=== PATIENT | male | born 1930 | race Caucasian/White ===

== ENCOUNTER 2019-08-20 19:23 | Observation (INO) ==
[2019-08-20] MEDS ORDERED: DILTIAZEM HCL 5 MG/ML VIAL IV ONE (19:37)
[2019-08-20] MEDS ORDERED: ENOXAPARIN SODIUM 80 MG/0.8 ML DISP.SYRIN SC ONE (19:38)
--- NOTE | 2019-08-20 19:47 | ERNOTE ---
Dyspnea - General Presenting Symptoms: shortness of breath Time Seen by Provider: 08/20/19 19:30 Source: patient, EMS Exam Limitations: no limitations - Immun/Allergies/Home Medications Immunizations: IMMUNIZATION HX Immunizations Up to Date Yes History of Influenza Vaccine Yes Hx Pneumococcal Vaccination Yes Allergies/Adverse Reactions: Allergies No Known Allergies Allergy (Verified 08/20/19 19:32) Per facility data Home Medications: HOME MEDICATIONS Durable Medical Equipment See Rx Instructions .ROUTE .MEDSUPPLY #1 ea 08/15/19 [Last Taken Unknown] aspirin 81 mg tablet,delayed release 81 mg PO DAILY 08/15/19 [Last Taken Unknown] clopidogrel 75 mg tablet 75 mg PO DAILY 08/15/19 [Last Taken Unknown] coenzyme Q10 100 mg capsule 100 mg PO DAILY 08/15/19 [Last Taken Unknown] finasteride 1 mg tablet 1 mg PO DAILY 08/15/19 [Last Taken Unknown] ipratropium-albuterol 0.5 mg-3 mg(2.5 mg base)/3 mL nebulization soln 3 ml IH QID PRN #1 ml 08/15/19 [Last Taken Unknown] pantoprazole 40 mg tablet,delayed release 20 mg PO DAILY tab 08/15/19 [Last Taken Unknown] polyethylene glycol 3350 17 gram/dose oral powder 8.5 g PO DAILY PRN #119 g 08/15/19 [Last Taken Unknown] - History of Present Illness Narrative: Patient was seen by me earlier and was given the option to stay in the hospital and he declined. At that point it appeared we are only dealing with his pulmonary fibrosis, however he returns now hypoxic again with a new onset atrial fibrillation. 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 Initiating event: Reports: other - Likely the new onset atrial fibrillation Frequency of episodes: Reports: no prior episodes Modifying Factors - (Improves): Reports: oxygen Modifying Factors (Worsens): Reports: nothing Associated Symptoms-Dyspnea: Reports: denies symptoms Prior Treatment: Reports: recently seen, treated by physician Review of Systems - Review of Systems Constitutional: Present: See HPI EYE: Present: no symptoms reported ENT: Present: no symptoms reported Respiratory: Present: See HPI Cardiology: Present: See HPI Gastrointestinal/Abdominal: Present: no symptoms reported Genitourinary: Present: no symptoms reported Musculoskeletal: Present: no symptoms reported Skin: Present: no symptoms reported Neurological: Present: no symptoms reported Endocrine: Present: no symptoms reported Hematologic/Lymphatic: Present: no symptoms reported Psych: Present: no symptoms reported Medical History (Last Reviewed 08/20/19 @ 19:32 by Terri Cornejo RN) Pulmonary fibrosis (Chronic) COPD (chronic obstructive pulmonary disease) (Acute) Enlarged prostate with lower urinary tract symptoms (LUTS) (Acute) Hyperlipidemia (Acute) GERD (gastroesophageal reflux disease) (Chronic) Benign prostatic hyperplasia Coronary artery disease Surgical History: Surgical History (Last Reviewed 08/20/19 @ 19:32 by Terri Cornejo RN) Esophageal stricture dilation 1998 History of angioplasty History of colonoscopy 2001 Family History: Family History (Last Reviewed 08/20/19 @ 19:32 by Terri Cornejo RN) Mother Diabetes Social History: (Last Reviewed 08/20/19 @ 19:32 by Terri Cornejo RN) Social History: current occupational status: retired Service: No Tobacco: Smoking Status: Former smoker Alcohol: alcohol intake: current alcohol intake frequency: holiday/special occasion details: 1 shot of liquor when he does Substance Use: substance use type: does not use Exercise: frequency: does not exercise Physical Exam - Physical Exam General Appearance: Present: wd/wn, alert, moderate distress Head Exam: Present: normal inspection, no evidence of injury Eye Exam: Normal inspection: bilateral, PERRL: bilateral Ears, Nose, Throat: Present: normal ENT inspection, H, normal pharynx Neck: Present: normal inspection, nontender Respiratory: Present: normal breath sounds, no accessory muscle use, chest nontender, lungs clear, other - Diminished breath sounds heard throughout Cardiovascular/Chest: Present: no murmur, normal peripheral pulses, tachycardia, irregularly irregular Gastrointestinal/Abdominal: Present: normal bowel sounds, nontender, nondistended, soft, no organomegaly Rectal Exam: Present: deferred Back Exam: Present: normal inspection, normal range of motion Extremity Exam: Present: normal inspection, non-tender, no edema, normal range of motion Neurological Exam: Present: alert, oriented, normal mood/affect Skin Exam: Present: normal color, warm/dry Lymphatic Exam: Present: no adenopathy Progress - Vital Signs Patient's Vital Signs:: I have reviewed the patient's vital signs. Vital Signs: Vital Signs 08/20/19 19:27 Temperature 36.5 C Pulse Rate 116 H Respiratory Rate 36 H Blood Pressure 159/62 H O2 Sat by Pulse Oximetry 89 L - Progress/Reassessment Chief Complaint: Dyspnea Plan - Plan Plan: Patient will need to be admitted to the hospital to help try to get his heart rate better controlled and to determine whether anticoagulation will be the next logical adjunct. Departure Clinical Impression: New onset atrial fibrillation, Pulmonary fibrosis - Departure Disposition: Still a patient Condition: Fair Referrals: Johann Vizcaino MD [Primary Care Provider] - Critical Care Note - Critical Care Note Total Time (mins): 30 Comments: Patient was given Cardizem IV to help control his heart rate. He was also given Lovenox 1 mg/kg subcu and will be started on oral diltiazem in the emergency department.
[2019-08-20] MEDS ORDERED: DILTIAZEM HCL 120 MG CAP.SR.24H PO ONE (19:57)
[2019-08-20] MEDS: DILTIAZEM HCL 120 MG CAP.SR.24H PO SCH (20:04)
[2019-08-21] MEDS ORDERED: ALPRAZolam 0.25 MG TABLET PO PRN (05:28)
[2019-08-21 06:38] VITALS: BP 110/63
[2019-08-21] MEDS: MORPHINE SULFATE 10 MG/0.5 ML SYRINGE PO PRN ×5 (08:13→16:49)
[2019-08-21] MEDS ORDERED: NORMAL SALINE IV SCH (08:15)
[2019-08-21] MEDS ORDERED: ENOXAPARIN SODIUM 80 MG/0.8 ML DISP.SYRIN SC SCH (08:15)
[2019-08-21] MEDS ORDERED: METHYLPREDNISOLONE SOD SUCC IV SCH (08:15)
[2019-08-21] MEDS: DILTIAZEM HCL 120 MG CAP.SR.24H PO SCH (08:19)
[2019-08-21] MEDS ORDERED: METHYLPREDNISOLONE SOD SUCC/PF 125 MG/2 ML VIAL IV ONE (08:30)
[2019-08-21] MEDS: ALBUTEROL SULFATE/IPRATROPIUM 3 ML NEBU IH SCH ×2 (10:09→15:01)
[2019-08-21] MEDS: LORAZEPAM 2 MG/ML ORAL.CONC PO PRN ×2 (10:14→10:18)
[2019-08-21] MEDS ORDERED: LORAZEPAM 2 MG/ML ORAL.CONC PO PRN (11:56)
[2019-08-21] MEDS ORDERED: ATROPINE SULFATE 50 DROP BTL SL PRN (11:58)
[2019-08-21] MEDS ORDERED: ALBUTEROL SULFATE 2.5 MG/0.5 ML VIAL.NEB IH PRN (11:58)
[2019-08-21] MEDS ORDERED: ACETAMINOPHEN 325 MG TABLET PO PRN (11:58)
[2019-08-21] MEDS ORDERED: ONDANSETRON HCL/PF 2 MG/ML VIAL IV PRN (11:58)
[2019-08-21] MEDS ORDERED: POLYVINYL ALCOHOL 150 DROP BTL EACHEYE PRN (11:58)
--- NOTE | 2019-08-21 12:14 | HP ---
Chief Complaint - Chief Complaint Date of Service: 08/21/19 Time of Service: 12:01 Chief Complaint: Dyspnea History of Present Illness: This is a 89-year-old male with end-stage pulmonary fibrosis. 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 He also has a history of GERD, BPH and coronary artery disease. These are asymptomatic at the present time. Over the last several days, he has become increasingly more dyspneic at home. Eventually he was in severe distress and came to the emergency room. He was there twice. The first time he elected to go home, but he became even more short of breath and returned, at which point he was admitted to the hospital. In the emergency room his O2 saturation was as low as 77% with 4 L/min nasal cannula oxygen. It went up to 90 or a little above with a mask. He appears to now maintain his O2 sats fairly well with the mask unless he becomes agitated, particularly because of his breathing, in which case his O2 sat drops again. He resides at [facility]. For some time he and his family have been talking about a hospice referral. They plan to talk to hospice as an outpatient next week. Now that he is in the hospital, he reasserts that he wishes no extraordinary measures and would like to be referred to hospice now so that he will be kept comfortable, with no current plan to try to reverse the course of this particular episode of illness. [facility] hospice has been contacted and will see him sometime today. I discussed all of this with him and also with his daughter today. All of their questions were answered. Both were encouraged to talk with his nurse should he need something or if they had problems or questions Medical History (Last Reviewed 08/21/19 @ 12:06 by Johann Vizcaino MD) Pulmonary fibrosis (Chronic) COPD (chronic obstructive pulmonary disease) (Acute) Enlarged prostate with lower urinary tract symptoms (LUTS) (Acute) Hyperlipidemia (Acute) GERD (gastroesophageal reflux disease) (Chronic) Benign prostatic hyperplasia Coronary artery disease Surgical History: Surgical History (Last Reviewed 08/21/19 @ 12:06 by Johann Vizcaino MD) Esophageal stricture dilation 1998 History of angioplasty History of colonoscopy 2001 Family History: Family History (Last Reviewed 08/21/19 @ 12:06 by Johann Vizcaino MD) Mother Diabetes Social History: (Last Reviewed 08/21/19 @ 12:06 by Johann Vizcaino MD) Social History: current occupational status: retired Service: No Tobacco: Smoking Status: Former smoker Alcohol: alcohol intake: current alcohol intake frequency: holiday/special occasion details: 1 shot of liquor when he does Substance Use: substance use type: does not use Exercise: frequency: does not exercise Review Of Systems (GEN) - Review of Systems Generalized/Overall Review: Present: Weakness, Fatigue EENTM: Absent: Eye Pain, Blurred Vision Respiratory: Present: Cough, Shortness of Breath Cardiac: Absent: Chest Pain, Edema Abdominal: Absent: Nausea, Abdominal Pain, Constipation, Diarrhea Genitourinary: Absent: Urgency, Frequency Musculoskeletal: Absent: Joint Pain, Back Pain Neurological: Absent: Anxiety, Depressed - Only anxious when his breathing becomes worse. We are using both morphine and lorazepam to help him be more comfortable. Skin: Absent: Lesions, Rash Endocrine: Present: Intolerance to Cold, Intolerance to Heat Misc: All systems neg except as marked Immunizations: IMMUNIZATION HX Immunizations Up to Date Yes History of Influenza Vaccine Yes Hx Pneumococcal Vaccination Yes Allergies/Adverse Reactions: Allergies Allergy/AdvReac Type Severity Reaction Status Date / Time No Known Allergies Allergy Verified 08/20/19 19:32 Home Medications: HOME MEDICATIONS aspirin 81 mg tablet,delayed release 81 mg PO DAILY 08/15/19 [Last Taken Unknown] clopidogrel 75 mg tablet 75 mg PO DAILY 08/15/19 [Last Taken Unknown] coenzyme Q10 100 mg capsule 100 mg PO DAILY 08/15/19 [Last Taken Unknown] Finasteride [Proscar] 5 mg PO HS 08/20/19 [Last Taken Unknown] Ipratropium/Albuterol Sulfate [Iprat-Albut 0.5-3(2.5) mg/3 ml] 3 ml INHALATION Q4H PRN 08/20/19 [Last Taken Unknown] Pantoprazole Sodium 20 mg PO DAILY 08/20/19 [Last Taken Unknown] Revefenacin [Yupelri] 1 vial INHALATION DAILY 08/20/19 [Last Taken Unknown] Sennosides [Senna Lax] 8.6 mg PO DAILY PRN 08/20/19 [Last Taken Unknown] predniSONE [Prednisone] 7.5 mg PO DAILY 08/20/19 [Last Taken Unknown] Exam - Exam Vital Signs: Vital Signs - Last Taken Temp 36.4 C 08/21/19 06:36 Pulse 99 08/21/19 10:56 Resp 42 H 08/21/19 10:19 BP 110/63 08/21/19 08:19 Pulse Ox 66 L 08/21/19 10:51 Constitutional: Present: Alert, Oriented x3, Cooperative, Well developed, Well nourished, Mild distress, Moderate distress, Elderly ENT Exam: Present: normal ENT inspection, hearing grossly normal Eye Exam: bilateral eye: normal inspection Neck: Present: normal inspection. Absent: lymphadenopathy (R), lymphadenopathy (L), thyromegaly Back Exam: Present: normal inspection, no CVA tenderness Breasts: Present: Exam deferred Respiratory: Present: respiratory distress - At the present when I was in the room examining him, he is much more comfortable. He is not oversedated from his morphine or lorazepam., decreased breath sounds Cardiovascular/Chest: Present: regular rate, rhythm - I have reviewed all of his EKGs from this admission. The first 3 are hard to read, but I believe he has been in sinus rhythm the entire time., no edema, no murmur, tachycardia Peripheral Pulses: carotid (R): 1+, carotid (L): 1+ Abdomen: Present: Normal bowel sounds, soft, nontender, nondistended, no hepatospenomegaly, no masses /Rectal: Present: Exam deferred Extremity: Present: normal inspection, normal capillary refill Skin Exam: Present: normal color, warm/dry, no cyanosis Lymphatic: Present: no adenopathy Neurologic: Present: normal mood/affect - Unless he is anxious because of his breathing. Absent: depressed affect Appearance: Present: appropriate appearance, appropriate insight, neat, no memory impairment Eye contact: Present: cooperative, good eye contact, normal speech - A little labored because he is a little short of breath still Thoughts: Present: normal thought pattern Assessment/Plan - Narrative Narrative: We will use comfort care orders and adjust as necessary. He is DO NOT RESUSCITATE. We will await hospice consult. - Assessment/Plan (1) Respiratory failure Assessment: Most likely hypoxemic and hypercapnic respiratory failure. Given his wish for hospice, we have not actually done blood gases. We will minimize interventions that would be disturbing for him. Problem: Acute Qualifiers: Chronicity: acute on chronic Respiratory failure complication: hypoxia and hypercapnia Qualified Code(s): J96.21 - Acute and chronic respiratory failure with hypoxia; J96.22 - Acute and chronic respiratory failure with hypercapnia (2) End of life care Problem: Acute (3) New onset atrial fibrillation Problem: Ruled-out (4) Pulmonary fibrosis Problem: Chronic (5) COPD (chronic obstructive pulmonary disease) Problem: Chronic Qualifiers: COPD type: emphysema Emphysema type: panlobular Qualified Code(s): J43.1 - Panlobular emphysema (6) GERD (gastroesophageal reflux disease) Problem: Chronic Qualifiers: Esophagitis presence: without esophagitis (7) Coronary artery disease Problem: Chronic Qualifiers: Coronary Disease-Associated Artery/Lesion type: unspecified vessel or lesion type [place] vs. transplanted heart: [place] heart Associated angina: without angina Qualified Code(s): I25.10 - Atherosclerotic heart disease of [place] coronary artery without angina pectoris
[2019-08-21] MEDS ORDERED: METHYLPREDNISOLONE SOD SUCC/PF 40 MG/ML VIAL IV SCH (14:30)
[2019-08-21] MEDS ORDERED: ALBUTEROL SULFATE/IPRATROPIUM 3 ML NEBU IH PRN (15:18)
[2019-08-21] MEDS ORDERED: SENNOSIDES 8.6 MG TABLET PO PRN (15:18)
--- NOTE | 2019-08-21 15:25 | DS ---
Transfer Discharge Summary - Diagnosis(s)/Problems (1) Respiratory failure Problem: Acute (2) End of life care Problem: Acute (3) New onset atrial fibrillation Problem: Ruled-out (4) Pulmonary fibrosis Problem: Chronic (5) COPD (chronic obstructive pulmonary disease) Problem: Chronic (6) GERD (gastroesophageal reflux disease) Problem: Chronic (7) Coronary artery disease Problem: Chronic - Course Description of Stay: Admitted and together with patient and family decided on hospice care. Those arrangements have now been made with the hospice house in [place]. Transfer arrangements are now complete, awaiting only discharge summary and orders. Pt is now comfortable with current treatment. Consultation Done:: Hospice Procedures Performed: none - Results and Findings Results and Findings: EKGs actually documented sinus rhythm and not a fib. O2 sats variable depending on O2 dose and patient restlessness. - Medications Medications: Active Medications Albuterol/Ipratropium (Duoneb 2.5-0.5mg/3ml Soln) 3 ml IH Q4HRT JACKY Stop: 09/20/19 11:01 Last Admin: 08/21/19 15:01 Dose: 3 ml Documented by: Diltiazem HCl (Cardizem Cd) 120 mg PO DAILY JACKY Stop: 09/20/19 09:01 Last Admin: 08/21/19 08:19 Dose: 120 mg Documented by: Methylprednisolone Sodium Succinate (Solu-Medrol) 80 mg IV Q6H JACKY Stop: 09/20/19 14:31 Last Admin: 08/21/19 14:04 Dose: Not Given Documented by: Morphine Sulfate (Morphine Sulfate Conc. Oral Solution) 6 mg PO Q1H PRN PRN Reason: restlessness Stop: 09/20/19 07:59 Last Admin: 08/21/19 13:57 Dose: 6 mg Documented by: Discontinued Medications Alprazolam (Xanax) 0.25 mg PO Q4H PRN PRN Reason: Anxiety Last Admin: 08/21/19 05:35 Dose: 0.25 mg Documented by: Diltiazem HCl (Cardizem) 20 mg IV ONCE ONE Stop: 08/20/19 19:38 Last Admin: 08/20/19 19:43 Dose: 20 mg Documented by: Enoxaparin Sodium (Lovenox) 80 mg SC ONCE ONE Stop: 08/20/19 19:39 Last Admin: 08/20/19 19:41 Dose: 80 mg Documented by: Enoxaparin Sodium (Lovenox) 80 mg SC Q12H JACKY Stop: 09/20/19 08:16 Last Admin: 08/21/19 09:56 Dose: Not Given Documented by: Lorazepam (Ativan Intensol) 0.25 mg PO Q4H PRN PRN Reason: RESTLESSNESS Stop: 09/20/19 08:34 Last Admin: 08/21/19 10:18 Dose: 0.25 mg Documented by: Methylprednisolone Sodium Succinate (Solu-Medrol (Pf)) 125 mg IV ONCE ONE Stop: 08/21/19 08:31 Last Admin: 08/21/19 10:01 Dose: 125 mg Documented by: Morphine Sulfate (Morphine Sulfate Conc. Oral Solution) 5 mg PO Q1H PRN PRN Reason: restlessness Stop: 09/20/19 07:59 Last Admin: 08/21/19 11:03 Dose: 5 mg Documented by: For additional specific hospice related orders please see the [facility] Comfort Kit orders which I have completed and signed and will be added to the rest of this transfer information. - Disposition Disposition: Hospice Medical Facility Condition: Poor Discharge Date: 08/21/19 Discharge Time: 15:25
[2019-08-21] MEDS ORDERED: SENNOSIDES/DOCUSATE SODIUM 1 TAB TABLET PO SCH (21:00)
[2019-08-22] MEDS ORDERED: PANTOPRAZOLE SODIUM 20 MG TABLET.DR PO SCH (07:00)
[2019-08-22] MEDS ORDERED: predniSONE 5 MG TABLET PO SCH (09:00)
[2019-08-22] MEDS ORDERED: ENOXAPARIN SODIUM 40 MG/0.4 ML SYRG SC SCH (09:00)
== END 2019-08-21 16:55 | disposition hospice, home (50) ==
LOC: MS 19:23 → ER 19:23 → MS 20:46
PROVIDERS: ADMIT Internal Medicine; ATTEND Allergy & Immunology
DX: I48.91 Unspecified atrial fibrillation; J96.90 Respiratory failure, unspecified, unspecified whether with hypoxia or hypercapnia; Z51.5 Encounter for palliative care; J84.10 Pulmonary fibrosis, unspecified; K21.9 Gastro-esophageal reflux disease without esophagitis; I25.10 Atherosclerotic heart disease of native coronary artery without angina pectoris; J44.9 Chronic obstructive pulmonary disease, unspecified
CPT/HCPCS: 87081; 93005; 94640; 94664; 96372; 96374; 96375; 99291; G0378